=== PATIENT | male | born 1950 | race Two or more races ===

== ENCOUNTER → 2016-06-28 | Outpatient (CLI) | payer BC, MEDICARE, OTHER ==
[2016-06-28 16:53] LABS: Basophils # (auto) 0 uL; Basophils % (auto) 0.5 % (0.0-2.0); Eosinophils # (auto) 0.1 uL; Eosinophils % (auto) 1.5 % (0.0-7.0); Hematocrit 49.4 % (41.0-53.0); Hemoglobin 16.3 g/dL (13.5-17.5); Lymphocytes # (auto) 1.8 uL; Lymphocytes % (auto) 32.3 % (10.0-50.0); Mean Corpuscular Hemoglobin 29.8 pg (28.0-32.0); Mean Corpuscular Hgb Conc. 33.1 g/dL (32.0-36.0); Mean Corpuscular Volume 90.2 fL (80.0-100.0); Mean Platelet Volume 9.4 fL (7.4-10.4); Monocytes # (auto) 0.6 uL; Monocytes % (auto) 10.6 % (0.0-12.0); Neutrophils # (auto) 3.1 uL; Neutrophils % (auto) 55.1 % (37.0-80.0); Platelet Count (auto) 180 10^3/uL (140-450); Red Cell Distribution Width 13.4 % (11.6-16.0); White Blood Cell 5.7 10^3/uL (4.4-10.8)
[2016-06-28 17:06] LABS: Urine Bilirubin Negative (Negative); Urine Blood Negative /uL (Negative); Urine Color Yellow (Yellow); Urine Glucose Normal (Normal); Urine Ketone Negative (Negative); Urine Nitrite Negative (Negative); Urine Urobilinogen Normal (Negative)
[2016-06-28 17:11] LABS: Albumin 4.2 g/dL (3.4-5.0); BUN/Creatinine Ratio 17.5; Calcium 8.7 mg/dL (8.5-10.1); Potassium 3.9 mmol/L (3.5-5.1); Total Protein 7.3 g/dL (6.4-8.2)
[2016-06-28 17:19] LABS: INR 1.06 (0.9-1.15); Partial Thromboplastin Time 28.5 sec (22.64-33.71); Prothrombin Time 10.9 sec (9.37-12.3)
[2016-06-28 18:01] LABS: Bilirubin, Direct 0.3 mg/dL (0-0.2)
== END | disposition home or self-care (01) ==
LOC: LAB 13:26
PROVIDERS: ATTEND Internal Medicine Cardiovascular Disease
DX: I10 Essential (primary) hypertension (principal); E78.00 Pure hypercholesterolemia, unspecified; K74.1 Hepatic sclerosis; E11.9 Type 2 diabetes mellitus without complications; R97.20 Elevated prostate specific antigen [PSA]; R53.81 Other malaise; E03.9 Hypothyroidism, unspecified; D64.9 Anemia, unspecified; E55.9 Vitamin D deficiency, unspecified; N39.0 Urinary tract infection, site not specified; M10.9 Gout, unspecified; R79.1 Abnormal coagulation profile
CPT/HCPCS: 36415; 80048; 80061; 80076; 81003; 82306; 83036; 84153; 84403; 84443; 84550; 85025; 85610; 85730

== ENCOUNTER 2016-07-06 07:56 | Inpatient (IN) | payer MEDICARE, OTHER ==
[~2016-07-06] VITALS: Ht 172.7 cm; Wt 118.6 kg
[~2016-07-06 07:56] MED LIST: ALBUAER3 IN; ALL300T PO; ALPR0.5T PO; ASPI81TA13 PO; B-CO1TAB8 PO; COLLCAP2 OR; CYAN1TAB18 PO; CYAN250L PO; DESV1TAB15 PO; FLUT250M2 INH; LISI-646 PO; OMEG100078 PO; PANT40TA2 PO; TRIA75TA55 PO; [UNRECOGNIZED DRUG - CODE] PO; [UNRECOGNIZED DRUG - CODE] TD
[2016-07-06] MEDS ORDERED: CLINDAMYCIN 600MG IV 50 ML IV ONE (08:13)
[2016-07-06] MEDS ORDERED: ROPIVACAINE 0.5% (5MG/ML) 20ML AMPULE IJ ONE (09:33)
[2016-07-06] MEDS ORDERED: BUPIVACAINE 0.25% INJ 50ML VIAL ONE (09:33)
[2016-07-06] MEDS ORDERED: BUPIVACAINE W/ EPINEPH 0.25% INJ 50ML MDV ONE (09:33)
[2016-07-06] MEDS ORDERED: EPINEPHrine HCL 1 MG/1 ML AMP ONE ×2 (09:36→09:38)
[2016-07-06] MEDS ORDERED: KETOROLAC TROMETH 30 MG/ML 1ML VIAL ONE (09:36)
[2016-07-06] MEDS ORDERED: cefTRIAXone SOD 1,000 MG VL ONE (09:40)
[2016-07-06] MEDS ORDERED: TETRACAINE 1% INJ 2 ML VIAL IJ ONE ×2 (11:02→11:03)
[2016-07-06] MEDS ORDERED: NEOSTIGMINE 1 MG/ML INJ (10mg/10ML VIAL) IV ONE (11:05)
[2016-07-06] MEDS ORDERED: GLYCOPYRROLATE 0.2 MG/ML 1ML VIAL IV ONE (11:05)
[2016-07-06] MEDS ORDERED: fentaNYL CITRATE 100 MCG/2 ML VL ONE (11:06)
[2016-07-06] MEDS ORDERED: ROCURONIUM 10MG/ML 10ML VIAL IV ONE (11:29)
[2016-07-06] MEDS ORDERED: fentaNYL CITRATE 5 ML ONE (11:29)
[2016-07-06] MEDS ORDERED: PROPOFOL 10 MG/ML 20 ML IV ONE (11:32)
[2016-07-06] MEDS ORDERED: MIDAZOLAM HCL 1MG/1ML-2 ML VIAL ONE (11:32)
[2016-07-06] MEDS ORDERED: HYDROmorphone HCL 2 MG/ML VL IV PRN (14:15)
[2016-07-06] MEDS ORDERED: hydrALAZINE HCL 20 MG/ML VL IV PRN (14:15)
[2016-07-06] MEDS ORDERED: ePHEDrine SULFATE 50 MG/ML AMP IV PRN (14:15)
[2016-07-06] MEDS ORDERED: ONDANSETRON HCL 4 MG/2 ML VIAL IV ONE (14:15)
[2016-07-06] MEDS ORDERED: KETOROLAC TROMETH 30 MG/ML 1ML VIAL IV PRN (14:30)
[2016-07-06] MEDS ORDERED: TEMAZEPAM 15 MG CAP PO PRN (14:30)
[2016-07-06] MEDS ORDERED: ENOXAPARIN SOD 40 MG/0.4 ML SYRINGE SC ONE (14:30)
[2016-07-06] MEDS: HYDROmorphone HCL 2 MG/ML VL ONE ×4 (14:45→15:15)
[2016-07-06] MEDS: ONDANSETRON HCL 4 MG/2 ML VIAL IV PRN ×2 (15:30→18:52)
[2016-07-06 16:30] VITALS: BP 120/74
[2016-07-06 17:00] VITALS: BP 120/78
[2016-07-06] MEDS: LACTATED RINGER'S 1,000 ML IV SCH (17:05)
[2016-07-06] MEDS: HYDROmorphone HCL 2 MG/ML VL IV PRN ×2 (18:46→20:58)
[2016-07-06] MEDS: CLINDAMYCIN 600MG IV 50 ML IV SCH (21:23)
[2016-07-06 22:00] VITALS: BP_SYST 114; BP_SYST 128; BP_DIAS 72; BP_DIAS 75
[2016-07-07] MEDS: DOCUSATE SOD 100 MG CAP PO SCH ×3 (00:19→22:19)
[2016-07-07] MEDS: SODIUM CHLOR 0.9% PF (SALINE LOCK) 10ML VIAL IV SCH ×4 (00:19→22:16)
[2016-07-07] MEDS: HYDROmorphone HCL 2 MG/ML VL IV PRN ×6 (01:01→20:02)
[2016-07-07] MEDS: ONDANSETRON HCL 4 MG/2 ML VIAL IV PRN ×5 (01:02→20:02)
[2016-07-07 05:30] VITALS: BP_SYST 106; BP_SYST 107; BP_DIAS 68; BP_DIAS 77
[2016-07-07] MEDS: CLINDAMYCIN 600MG IV 50 ML IV SCH ×3 (05:31→22:18)
[2016-07-07 08:00] VITALS: BP 107/77
[2016-07-07 08:14] LABS: Hematocrit 40.8 % (41.0-53.0); Hemoglobin 13.8 g/dL (13.5-17.5)
[2016-07-07 09:00] VITALS: BP 119/77
[2016-07-07] MEDS: ENOXAPARIN SOD 40 MG/0.4 ML SYRINGE SC SCH (10:00)
[2016-07-07] MEDS: PANTOPRAZOLE 40 MG TAB PO SCH (10:00)
[2016-07-07] MEDS: LACTATED RINGER'S 1,000 ML IV SCH (10:17)
[2016-07-07 12:45] VITALS: BP 128/78
[2016-07-07 17:00] VITALS: BP 110/75
[2016-07-07] MEDS ORDERED: CALCIUM CARB 500 MG CHEW TAB PO ONE (20:00)
[2016-07-07 21:54] VITALS: BP 121/78
[2016-07-08] MEDS: ONDANSETRON HCL 4 MG/2 ML VIAL IV PRN ×5 (00:41→21:46)
[2016-07-08] MEDS: HYDROmorphone HCL 2 MG/ML VL IV PRN ×5 (00:43→21:45)
[2016-07-08 05:05] VITALS: BP 118/77
[2016-07-08] MEDS: CLINDAMYCIN 600MG IV 50 ML IV SCH ×2 (06:00→14:00)
[2016-07-08] MEDS: SODIUM CHLOR 0.9% PF (SALINE LOCK) 10ML VIAL IV SCH ×3 (06:01→21:46)
[2016-07-08] MEDS: LACTATED RINGER'S 1,000 ML IV SCH (06:17)
[2016-07-08 07:34] LABS: Hematocrit 39.3 % (41.0-53.0); Hemoglobin 13.4 g/dL (13.5-17.5)
[2016-07-08 09:00] VITALS: BP 126/65
[2016-07-08] MEDS: DOCUSATE SOD 100 MG CAP PO SCH ×2 (10:30→21:46)
[2016-07-08] MEDS: ENOXAPARIN SOD 40 MG/0.4 ML SYRINGE SC SCH (10:30)
[2016-07-08] MEDS: PANTOPRAZOLE 40 MG TAB PO SCH (10:30)
[2016-07-08 12:30] VITALS: BP 113/74
[2016-07-08 16:53] VITALS: BP 120/72
[2016-07-08 21:30] VITALS: BP 127/75
[2016-07-09 04:41] VITALS: BP 130/67
[2016-07-09] MEDS: SODIUM CHLOR 0.9% PF (SALINE LOCK) 10ML VIAL IV SCH ×2 (05:23→14:41)
[2016-07-09 08:00] VITALS: BP 114/70
[2016-07-09 08:21] LABS: Hemoglobin 13.7 g/dL (13.5-17.5)
[2016-07-09 09:00] VITALS: BP 114/70
[2016-07-09] MEDS: DOCUSATE SOD 100 MG CAP PO SCH (09:05)
[2016-07-09] MEDS: PANTOPRAZOLE 40 MG TAB PO SCH (09:06)
[2016-07-09] MEDS: ONDANSETRON HCL 4 MG/2 ML VIAL IV PRN ×3 (09:06→14:40)
[2016-07-09] MEDS: HYDROmorphone HCL 2 MG/ML VL IV PRN ×4 (09:06→18:35)
[2016-07-09] MEDS: ENOXAPARIN SOD 40 MG/0.4 ML SYRINGE SC SCH (09:06)
[2016-07-09 12:52] VITALS: BP 121/67
[2016-07-09 17:00] VITALS: BP 134/65
== END 2016-07-09 19:10 | disposition home health service (06) | DRG 470 ==
LOC: SUR 07:56 → TELE-WESTW 07:57 → WEST WING 07-07 00:36
PROVIDERS: ADMIT Orthopaedic Surgery; ATTEND Internal Medicine
PROC: 0SRD0J9 Replacement of Left Knee Joint with Synthetic Substitute, Cemented, Open Approach (ICD-10-PCS; principal; 2016-07-06 11:05)
DX: M17.12 Unilateral primary osteoarthritis, left knee (principal); E66.9 Obesity, unspecified; J45.909 Unspecified asthma, uncomplicated; K21.9 Gastro-esophageal reflux disease without esophagitis; M94.262 Chondromalacia, left knee; M71.20 Synovial cyst of popliteal space [Baker], unspecified knee; Z88.0 Allergy status to penicillin; Z68.35 Body mass index [BMI] 35.0-35.9, adult; Z90.49 Acquired absence of other specified parts of digestive tract
CPT/HCPCS: 36415; 73562; 82962; 85014; 85018; 86850; 86900; 86901; 97116; 97530; J0171; J0696; J1885; J2250; J2405; J2704; J3490

== ENCOUNTER → 2016-09-29 | Outpatient (CLI) | payer BC ==
[~2016-09-29] VITALS: Ht 172.7 cm; Wt 106.1 kg
[~2016-09-29] MED LIST changes: +ADENOSINE 89 MG in GIVE UN-DILUTED 0 ML IV ONE; +ADENOSINE 90 MG/30 ML INJ IV ONE
== END | disposition home or self-care (01) ==
LOC: Rad HDHVI 08:27
PROVIDERS: ATTEND Internal Medicine Cardiovascular Disease
DX: I10 Essential (primary) hypertension (principal); I25.2 Old myocardial infarction; E78.00 Pure hypercholesterolemia, unspecified; J45.909 Unspecified asthma, uncomplicated; Z82.49 Family history of ischemic heart disease and other diseases of the circulatory system
CPT/HCPCS: 78452; 93005; 96374; 96375; A9500; J0153

== ENCOUNTER → 2017-07-12 | Outpatient (CLI) | payer BC ==
[~2017-07-12] MED LIST changes: -ADENOSINE 89 MG in GIVE UN-DILUTED 0 ML IV ONE; -ADENOSINE 90 MG/30 ML INJ IV ONE
[2017-07-12 12:26] LABS: Urine Blood Negative /uL (Negative); Urine Specific Gravity 1.022 (1.001-1.035)
[2017-07-12 12:30] LABS: Basophils # (auto) 0 uL; Basophils % (auto) 0.5 % (0.0-2.0); Eosinophils # (auto) 0.1 uL; Eosinophils % (auto) 1.6 % (0.0-7.0); Hematocrit 48.4 % (41.0-53.0); Hemoglobin 16.5 g/dL (13.5-17.5); Lymphocytes # (auto) 1.2 uL; Lymphocytes % (auto) 29.6 % (10.0-50.0); Mean Corpuscular Hemoglobin 31.2 pg (28.0-32.0); Mean Corpuscular Hgb Conc. 34.1 g/dL (32.0-36.0); Mean Corpuscular Volume 91.6 fL (80.0-100.0); Monocytes # (auto) 0.4 uL; Monocytes % (auto) 9.6 % (0.0-12.0); Neutrophils # (auto) 2.4 uL; Neutrophils % (auto) 58.7 % (37.0-80.0); Nucleated Red Blood Cells % 0.5 %; Platelet Count (auto) 143 10^3/uL (140-450); Red Blood Cells 5.28 10^6/uL (4.5-5.90); Red Cell Distribution Width 14.4 % (11.8-14.3); White Blood Cell 4.1 10^3/uL (4.4-10.8)
[2017-07-12 12:48] LABS: Free T4 (Free Thyroxine) 1.15 ng/dL (0.89-1.76)
[2017-07-12 12:54] LABS: Albumin 4.3 g/dL (3.4-5.0); BUN/Creatinine Ratio 23.8; Bilirubin, Total 0.8 mg/dL (0.2-1.0); Calcium 8.7 mg/dL (8.5-10.1); Potassium 4.1 mmol/L (3.5-5.1); Total Protein 7.6 g/dL (6.4-8.2)
== END | disposition home or self-care (01) ==
LOC: LAB 08:13
PROVIDERS: ATTEND Internal Medicine Cardiovascular Disease
DX: E78.5 Hyperlipidemia, unspecified (principal); D64.9 Anemia, unspecified; I10 Essential (primary) hypertension; E03.9 Hypothyroidism, unspecified; E55.9 Vitamin D deficiency, unspecified; E11.9 Type 2 diabetes mellitus without complications; D51.9 Vitamin B12 deficiency anemia, unspecified; R53.81 Other malaise; N39.0 Urinary tract infection, site not specified
CPT/HCPCS: 36415; 80053; 80061; 81003; 82306; 82607; 83036; 84403; 84439; 84443; 85025

== ENCOUNTER → 2017-10-06 | Outpatient (CLI) | payer BC ==
[2017-10-06 09:29] LABS: Basophils # (auto) 0 uL; Basophils % (auto) 0.7 % (0.0-2.0); Eosinophils # (auto) 0.1 uL; Hematocrit 43.5 % (41.0-53.0); Hemoglobin 15.2 g/dL (13.5-17.5); Lymphocytes # (auto) 1.7 uL; Lymphocytes % (auto) 33.9 % (10.0-50.0); Mean Corpuscular Hemoglobin 31.3 pg (28.0-32.0); Mean Corpuscular Hgb Conc. 34.8 g/dL (32.0-36.0); Mean Corpuscular Volume 89.9 fL (80.0-100.0); Monocytes # (auto) 0.6 uL; Monocytes % (auto) 11.2 % (0.0-12.0); Neutrophils # (auto) 2.7 uL; Neutrophils % (auto) 52.2 % (37.0-80.0); Platelet Count (auto) 148 10^3/uL (140-450); Red Blood Cells 4.84 10^6/uL (4.5-5.90); Red Cell Distribution Width 13.8 % (11.8-14.3); White Blood Cell 5.1 10^3/uL (4.4-10.8)
[2017-10-06 11:44] LABS: INR 0.94 (0.9-1.15); Partial Thromboplastin Time 30.1 sec (23.78-33.04); Prothrombin Time 10.1 sec (9.27-12.13)
== END | disposition home or self-care (01) ==
LOC: LAB 09:08
PROVIDERS: ATTEND Internal Medicine Gastroenterology
DX: Z01.812 Encounter for preprocedural laboratory examination (principal); K63.5 Polyp of colon; E78.5 Hyperlipidemia, unspecified; E03.9 Hypothyroidism, unspecified; E11.9 Type 2 diabetes mellitus without complications
CPT/HCPCS: 36415; 85025; 85610; 85730

== ENCOUNTER → 2018-03-13 | Outpatient (CLI) | payer BC ==
[~2018-03-13] VITALS: Ht 172.7 cm; Wt 90.3 kg
[~2018-03-13] MED LIST changes: +ASPI1TAB19 PO; -ASPI81TA13 PO
[2018-03-13 12:14] LABS: Urine Blood Negative /uL (Negative); Urine Specific Gravity 1.024 (1.001-1.035)
[2018-03-13 12:32] LABS: Albumin 4.1 g/dL (3.4-5.0); BUN/Creatinine Ratio 29.3; Calcium 8.9 mg/dL (8.5-10.1); Potassium 4.2 mmol/L (3.5-5.1)
[2018-03-13 12:37] LABS: Basophils # (auto) 0 uL; Basophils % (auto) 0.9 % (0.0-2.0); Eosinophils # (auto) 0.1 uL; Eosinophils % (auto) 1.9 % (0.0-7.0); Hematocrit 46.7 % (41.0-53.0); Hemoglobin 15.9 g/dL (13.5-17.5); Lymphocytes # (auto) 1.5 uL; Mean Corpuscular Volume 91.3 fL (80.0-100.0); Monocytes # (auto) 0.5 uL; Monocytes % (auto) 10.5 % (0.0-12.0); Neutrophils # (auto) 2.5 uL; Neutrophils % (auto) 54.7 % (37.0-80.0); Nucleated Red Blood Cells % 1.3 %; Platelet Count (auto) 146 10^3/uL (140-450); Red Blood Cells 5.12 10^6/uL (4.5-5.90); Red Cell Distribution Width 13.6 % (11.8-14.3); White Blood Cell 4.6 10^3/uL (4.4-10.8)
[2018-03-13 12:38] LABS: Bilirubin, Total 0.5 mg/dL (0.2-1.0); Total Protein 7.4 g/dL (6.4-8.2)
[2018-03-13 12:41] LABS: Free T4 (Free Thyroxine) 0.85 ng/dL (0.89-1.76)
[2018-03-13 12:42] LABS: Prostate Specific Antigen 0.73 ng/mL (0.0-4.0)
== END | disposition home or self-care (01) ==
LOC: Rad HDHVI 07:54
PROVIDERS: ATTEND Internal Medicine Cardiovascular Disease
DX: I07.1 Rheumatic tricuspid insufficiency (principal); E78.5 Hyperlipidemia, unspecified; D64.9 Anemia, unspecified; E03.9 Hypothyroidism, unspecified; E55.9 Vitamin D deficiency, unspecified; E11.9 Type 2 diabetes mellitus without complications; C61 Malignant neoplasm of prostate; D51.9 Vitamin B12 deficiency anemia, unspecified; I10 Essential (primary) hypertension; K74.1 Hepatic sclerosis; N39.0 Urinary tract infection, site not specified; R07.89 Other chest pain; R06.02 Shortness of breath
CPT/HCPCS: 36415; 78452; 80053; 80061; 81003; 82306; 82607; 83036; 84153; 84403; 84439; 84443; 85025; 93017; 93306; 96374; A9500

== ENCOUNTER → 2019-11-20 | Outpatient (CLI) | payer BC, MEDICARE ==
[~2019-11-20] VITALS: Ht 172.7 cm; Wt 95.7 kg
== END | disposition home or self-care (01) ==
LOC: Rad HDHVI 08:08
PROVIDERS: ATTEND Internal Medicine Cardiovascular Disease
DX: Z01.810 Encounter for preprocedural cardiovascular examination (principal); I10 Essential (primary) hypertension; Z82.49 Family history of ischemic heart disease and other diseases of the circulatory system
CPT/HCPCS: 78452; 93017; 96374; A9500

== ENCOUNTER → 2019-11-21 | Outpatient (CLI) | payer BC, MEDICARE | END | disposition home or self-care (01) | LOC: Rad HDHVI 15:57 | PROVIDERS: ATTEND Internal Medicine Cardiovascular Disease | DX: I50.23 Acute on chronic systolic (congestive) heart failure (principal) | CPT/HCPCS: 93306 ==